=== PATIENT | female | born 1990 | race Asian ===

== ENCOUNTER 2022-04-04 05:22 | Emergency (ER) | payer OTHER ==
[~2022-04-04] VITALS: Ht 162.6 cm; Wt 54.4 kg
[2022-04-04 05:31] VITALS: BP_SYST 118
[2022-04-04 05:38] VITALS: BP_SYST 118
--- NOTE | 2022-04-04 05:39 | NUR ---
WALKED IN C/O RIGHT WRIST PAIN X LAST NIGHT. DENIES INJURY/ TRAUMA. PT STATES SHE LIFTS HER BABY A LOT. 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
--- NOTE | 2022-04-04 05:39 | NUR ---
Patient triaged and placed in waiting room. VSS and patient appears in no acute distress at this time. Accompanied by FAMILY, awaiting available bed, and MD notified of need for MSE.
--- NOTE | 2022-04-04 06:01 | NUR ---
NO ANSWER WHEN CALLED FROM [facility] FOR XRAY
--- NOTE | 2022-04-04 06:27 | NUR ---
NO ANSWER WHEN CALLED FOR MSE
--- NOTE | 2022-04-04 06:33 | NUR ---
NO ANSWER WHEN CALLED FROM [facility]
== END 2022-04-04 06:33 | disposition left against medical advice (07) ==
LOC: SED 05:22
DX: M25.531 Pain in right wrist (principal); Z53.21 Procedure and treatment not carried out due to patient leaving prior to being seen by health care provider